=== PATIENT | female | born 1930 | race Caucasian/White ===

== ENCOUNTER 2016-12-02 13:00 | Outpatient (RCR) | payer MEDICARE | END 2016-12-16 12:00 | disposition home or self-care (01) | LOC: PT 13:00 | PROVIDERS: ATTEND Physician Assistant Medical | DX: M54.5 Low back pain (principal); R29.6 Repeated falls | CPT/HCPCS: 97110; 97112; 97116; 97163; 97530; G8978; G8979 ==